=== PATIENT | male | born 1955 | race American Indian/Alaskan Native ===

== ENCOUNTER → 2016-10-09 | Outpatient (CLI) | payer MEDICARE, OTHER ==
[~2016-10-09] MED LIST: ALFU10TA PO; ALIR75PE SC; AMIO200T PO; AMIO200T42 PO; ASPI-496 PO; ASPI-650 PO; ATOR40TA78 PO; BROMOCRIPTINE PO; CELE200C PO; CETI10TA18 PO; CHOL20002 PO; CHOL20003 PO; COLE625T2 PO; CYAN10002 SQ; DIGO125T PO; DOXY100T PO; ERGO500047 PO; ERTA1VIA IV; EXEN2PEN SC; EZET10TA3 PO; FENO145T13 PO; FENO145T32 PO; FENOFIBRATE PO; FLUN25SP INH; FLUN25SP NAS; FLUT16SP NAS; FLUT1BLS INH; FLUT9.9S INH; FURO40TA6 PO; GLIM4TAB2 PO; GLIP5TAB10 PO; GUAI100L11 PO; HYDR-3138 PO; HYDR-3150 PO; HYDR-3240 PO; INSU100C5 SQ-INSULIN; INSU100I28 SQ-INSULIN; INSU100V13 SQ; INSU200I4 SC; IPRA15SP INH; IPRA15SP NAS; LEVO500T33 PO; LISI-167 PO; LISI5TAB7 PO; MAGN400T7 PO; MECL25TA4 PO; METF10002 PO; METH500T7 PO; METO-93 PO; METO25TA2 PO; METO25TA35 PO; METO25TA91 PO; METR250T4 PO; MUPIROCIN 2% TP; NPH,100V SQ; OMEG-14 PO; OXYC5TAB3 PO; POLY17PO5 PO; POTA10TA5 PO; PREG50CA PO; ROSU20TA PO; SODI30SP NAS; SODI45SP4 NAS; SPIR25TA3 PO; TAMS0.4C2 PO; TERB250T3 PO; TRIA10.8 INH; vitamin b-12 IM; will bring a list
== END | disposition home or self-care (01) ==
LOC: CFH 16:24
PROVIDERS: ATTEND Physical Medicine & Rehabilitation Sports Medicine
DX: M47.892 Other spondylosis, cervical region (principal); M48.02 Spinal stenosis, cervical region; M25.521 Pain in right elbow; M25.511 Pain in right shoulder
CPT/HCPCS: 72125

== ENCOUNTER 2017-02-08 19:49 | Inpatient (IN) | payer MEDICARE, OTHER ==
[~2017-02-08] VITALS: Ht 180.3 cm; Wt 124.4 kg
[~2017-02-08 19:49] MED LIST changes: +CHOL2000 PO; -CHOL20003 PO; +COLE625T12 PO; -COLE625T2 PO; +EZET10TA18 PO; -EZET10TA3 PO; -HYDR-3138 PO; +HYDR-3237 PO; -LEVO500T33 PO; +LEVO500T47 PO; +METR250T12 PO; -METR250T4 PO
[2017-02-08 21:09] LABS: HEMATOCRIT 37.7 % (39.2-51.8); HEMOGLOBIN 12.5 g/dL (13.7-18.0); WHITE BLOOD COUNT 9.8 x10^3/uL (3.4-10)
[2017-02-08 21:14] LABS: ASPARTATE AMINO TRANSFERASE 20 U/L (15-37); BLOOD UREA NITROGEN 27 mg/dL (7-18)
[2017-02-08 21:20] LABS: IS PT STATUS REG ER OR PRE ER? YES
[2017-02-08] MEDS ORDERED: FUROSEMIDE 40 MG/4 ML IV ONE (22:00)
[2017-02-08] MEDS ORDERED: FUROSEMIDE 40 MG/4 ML ONE (22:03)
[2017-02-08] MEDS ORDERED: P EP PO (22:24)
[2017-02-08] MEDS ORDERED: EXEN5PEN2 SQ (22:24)
[2017-02-08] MEDS ORDERED: EZET10TA18 PO (22:24)
[2017-02-08] MEDS ORDERED: BUDE0.5A INH (22:24)
[2017-02-08] MEDS ORDERED: SACU1TAB PO (22:24)
[2017-02-08] MEDS ORDERED: CHLO1TAB PO (22:24)
[2017-02-08] MEDS ORDERED: TEMPLATE NON-FORMULARY MED. (Alfuzosin Hcl** (Uroxatral**) 10 MG) HOMEMEDPO SCH (23:00)
[2017-02-08] MEDS ORDERED: DOCUSATE 100 MG CAPSULE PO PRN (23:00)
[2017-02-08] MEDS ORDERED: ONDANSETRON 2MG/ML, 2ML IVPush PRN (23:00)
[2017-02-08] MEDS ORDERED: POLYETHYLENE GLYCOL 17 GM PACKET PO PRN (23:00)
[2017-02-08] MEDS: BUDESONIDE 0.5 MG/2 ML INHA INH SCH (23:00)
[2017-02-08] MEDS ORDERED: ACETAMINOPHEN 325 MG TABLET PO PRN (23:00)
[2017-02-08] MEDS ORDERED: morphine SULFATE 10 MG/ML, 1ML IVPush PRN (23:00)
[2017-02-09] MEDS: COLESEVELAM 625 MG TABLET PO SCH ×4 (00:54→21:06)
[2017-02-09] MEDS: ATORVASTATIN 20 MG TABLET PO SCH ×2 (00:54→21:06)
[2017-02-09 00:59] VITALS: BP 110/76
[2017-02-09] MEDS: GLIMEPIRIDE 4 MG TABLET PO SCH ×3 (01:37→16:37)
[2017-02-09] MEDS: POTASSIUM CHLORIDE 20 MEQ TAB.ER.PRT PO SCH ×3 (01:37→21:06)
[2017-02-09] MEDS: PREGABALIN 25 MG CAPSULE PO SCH ×4 (01:38→21:07)
[2017-02-09] MEDS: MAGNESIUM OXIDE 400 MG TABLET PO SCH ×2 (01:38→21:06)
[2017-02-09] MEDS: SACUBITRIL/VALSARTAN 24MG-26MG TAB PO SCH ×3 (01:39→21:07)
[2017-02-09] MEDS: HYDROcodone/APAP 5/325 TABLET PO PRN ×4 (01:40→22:39)
[2017-02-09] MEDS ORDERED: IPRATROPIUM 0.5 MG/2.5 ML INHA NPPB PRN (02:00)
[2017-02-09 05:19] LABS: HEMATOCRIT 38.1 % (39.2-51.8); HEMOGLOBIN 12.8 g/dL (13.7-18.0); WHITE BLOOD COUNT 10.3 x10^3/uL (3.4-10)
[2017-02-09] MEDS: HEPARIN 5,000 UNITS/ML, 1ML SQ SCH ×3 (05:46→21:59)
[2017-02-09 05:53] LABS: IS PT STATUS REG ER OR PRE ER? NO
[2017-02-09 06:34] LABS: BLOOD UREA NITROGEN 28 mg/dL (7-18)
[2017-02-09] MEDS ORDERED: FUROSEMIDE 40 MG/4 ML IV SCH (07:30)
[2017-02-09 07:35] VITALS: BP 102/69
[2017-02-09] MEDS: FENOFIBRATE 145 MG TABLET PO SCH (07:44)
[2017-02-09] MEDS: CETIRIZINE 10 MG TABLET PO SCH (07:44)
[2017-02-09] MEDS: ASPIRIN 81 MG TABLET EC PO SCH (07:44)
[2017-02-09] MEDS: DIGOXIN 0.125 MG TABLET PO SCH (07:44)
[2017-02-09] MEDS: AMIODARONE 200 MG TABLET PO SCH (07:44)
[2017-02-09] MEDS: EZETIMIBE 10 MG TABLET PO SCH (07:45)
[2017-02-09] MEDS: SENNA/DOCUSATE TABLET PO SCH (07:45)
[2017-02-09] MEDS: SODIUM CHLORIDE FLUSH 10ML SYR IVF SCH ×2 (07:46→21:09)
[2017-02-09 08:53] VITALS: BP 119/75
[2017-02-09] MEDS: METOPROLOL SUCCINATE 25 MG TAB.ER.24H PO SCH (08:59)
[2017-02-09] MEDS: SPIRONOLACTONE 25 MG TABLET PO SCH (08:59)
[2017-02-09] MEDS ORDERED: BUDESONIDE 0.5 MG/2 ML INHA NPPB SCH (09:00)
[2017-02-09] MEDS: BUDESONIDE 0.5 MG/2 ML INHA INH SCH ×2 (10:07→20:42)
[2017-02-09 13:44] VITALS: BP 102/65
[2017-02-09 16:37] VITALS: BP 109/73
[2017-02-09] MEDS: FUROSEMIDE 40 MG/4 ML IV SCH (16:38)
[2017-02-09] MEDS: INSULIN ASPART 100 UNITS/ML, PEN SQ-INSULIN SCH ×2 (16:39→21:05)
[2017-02-09 20:49] VITALS: BP 124/84
[2017-02-09] MEDS: ALFUZOSIN HCL 10 MG HOMEMEDPO SCH (21:08)
[2017-02-09] MEDS: IPRATROPIUM 0.5 MG/2.5 ML INHA HHN PRN (23:14)
[2017-02-10 01:30] VITALS: BP 114/71
[2017-02-10 05:53] LABS: BLOOD UREA NITROGEN 29 mg/dL (7-18)
[2017-02-10] MEDS: HEPARIN 5,000 UNITS/ML, 1ML SQ SCH ×3 (05:58→20:24)
[2017-02-10] MEDS: HYDROcodone/APAP 5/325 TABLET PO PRN ×3 (05:58→17:22)
[2017-02-10] MEDS: SENNA/DOCUSATE TABLET PO SCH (07:27)
[2017-02-10] MEDS: COLESEVELAM 625 MG TABLET PO SCH ×3 (07:27→20:25)
[2017-02-10 07:36] VITALS: BP 108/72
[2017-02-10] MEDS: INSULIN ASPART 100 UNITS/ML, PEN SQ-INSULIN SCH ×4 (07:39→20:24)
[2017-02-10] MEDS: TRESIBA 30 UNIT SQ SCH (07:40)
[2017-02-10] MEDS: POTASSIUM CHLORIDE 20 MEQ TAB.ER.PRT PO SCH ×2 (07:43→20:25)
[2017-02-10] MEDS: DIGOXIN 0.125 MG TABLET PO SCH (07:43)
[2017-02-10] MEDS: FENOFIBRATE 145 MG TABLET PO SCH (07:43)
[2017-02-10] MEDS: FUROSEMIDE 40 MG/4 ML IV SCH ×2 (07:43→17:31)
[2017-02-10] MEDS: SPIRONOLACTONE 25 MG TABLET PO SCH (07:44)
[2017-02-10] MEDS: SACUBITRIL/VALSARTAN 24MG-26MG TAB PO SCH ×2 (07:44→20:25)
[2017-02-10] MEDS: GLIMEPIRIDE 4 MG TABLET PO SCH ×2 (07:45→17:23)
[2017-02-10] MEDS: CETIRIZINE 10 MG TABLET PO SCH (07:45)
[2017-02-10] MEDS: EZETIMIBE 10 MG TABLET PO SCH (07:45)
[2017-02-10] MEDS: ASPIRIN 81 MG TABLET EC PO SCH (07:45)
[2017-02-10] MEDS: PREGABALIN 25 MG CAPSULE PO SCH ×3 (07:45→20:27)
[2017-02-10] MEDS: METOPROLOL SUCCINATE 25 MG TAB.ER.24H PO SCH (07:46)
[2017-02-10] MEDS: AMIODARONE 200 MG TABLET PO SCH (07:46)
[2017-02-10] MEDS: SODIUM CHLORIDE FLUSH 10ML SYR IVF SCH ×2 (07:47→20:24)
[2017-02-10] MEDS: BUDESONIDE 0.5 MG/2 ML INHA INH SCH ×2 (09:00→19:50)
[2017-02-10 11:41] LABS: IS PT STATUS REG ER OR PRE ER? NO
[2017-02-10 14:50] VITALS: BP 100/67
[2017-02-10] MEDS: IPRATROPIUM 0.5 MG/2.5 ML INHA HHN PRN ×2 (14:53→19:50)
[2017-02-10] MEDS ORDERED: ONDANSETRON 2MG/ML, 2ML IVPush PRN (16:00)
[2017-02-10] MEDS ORDERED: DOCUSATE 100 MG CAPSULE PO PRN (16:00)
[2017-02-10] MEDS ORDERED: POLYETHYLENE GLYCOL 17 GM PACKET PO PRN (16:00)
[2017-02-10] MEDS ORDERED: morphine SULFATE 10 MG/ML, 1ML IVPush PRN (16:00)
[2017-02-10] MEDS ORDERED: IPRATROPIUM 0.5 MG/2.5 ML INHA NPPB PRN (16:00)
[2017-02-10] MEDS ORDERED: ACETAMINOPHEN 325 MG TABLET PO PRN (16:00)
[2017-02-10 16:04] LABS: IS PT STATUS REG ER OR PRE ER? NO
[2017-02-10 20:15] VITALS: BP 110/64
[2017-02-10] MEDS: ALFUZOSIN HCL 10 MG HOMEMEDPO SCH (20:25)
[2017-02-10] MEDS: ATORVASTATIN 20 MG TABLET PO SCH (20:25)
[2017-02-10] MEDS: MAGNESIUM OXIDE 400 MG TABLET PO SCH (20:26)
[2017-02-11] MEDS: HYDROcodone/APAP 5/325 TABLET PO PRN ×5 (00:21→23:17)
[2017-02-11 00:32] VITALS: BP 107/70
[2017-02-11] MEDS: IPRATROPIUM 0.5 MG/2.5 ML INHA HHN PRN ×2 (04:45→11:03)
[2017-02-11 05:03] LABS: HEMATOCRIT 39.1 % (39.2-51.8); HEMOGLOBIN 13.1 g/dL (13.7-18.0); WHITE BLOOD COUNT 7.7 x10^3/uL (3.4-10)
[2017-02-11 05:23] LABS: ASPARTATE AMINO TRANSFERASE 11 U/L (15-37); BLOOD UREA NITROGEN 32 mg/dL (7-18)
[2017-02-11 06:09] LABS: IS PT STATUS REG ER OR PRE ER? NO
[2017-02-11] MEDS: HEPARIN 5,000 UNITS/ML, 1ML SQ SCH ×3 (06:30→20:23)
[2017-02-11] MEDS: SENNA/DOCUSATE TABLET PO SCH (07:22)
[2017-02-11] MEDS: COLESEVELAM 625 MG TABLET PO SCH ×3 (07:22→20:46)
[2017-02-11 07:36] VITALS: BP 97/62
[2017-02-11] MEDS: FUROSEMIDE 40 MG/4 ML IV SCH ×2 (07:38→17:05)
[2017-02-11] MEDS: CETIRIZINE 10 MG TABLET PO SCH (07:38)
[2017-02-11] MEDS: ASPIRIN 81 MG TABLET EC PO SCH (07:39)
[2017-02-11] MEDS: SPIRONOLACTONE 25 MG TABLET PO SCH (07:39)
[2017-02-11] MEDS: PREGABALIN 25 MG CAPSULE PO SCH ×3 (07:39→20:22)
[2017-02-11] MEDS: DIGOXIN 0.125 MG TABLET PO SCH (07:39)
[2017-02-11] MEDS: EZETIMIBE 10 MG TABLET PO SCH (07:39)
[2017-02-11] MEDS: AMIODARONE 200 MG TABLET PO SCH (07:39)
[2017-02-11] MEDS: POTASSIUM CHLORIDE 20 MEQ TAB.ER.PRT PO SCH ×2 (07:39→20:21)
[2017-02-11] MEDS: FENOFIBRATE 145 MG TABLET PO SCH (07:39)
[2017-02-11] MEDS: SACUBITRIL/VALSARTAN 24MG-26MG TAB PO SCH ×2 (07:39→20:21)
[2017-02-11] MEDS: TRESIBA 30 UNIT SQ SCH (07:40)
[2017-02-11] MEDS: SODIUM CHLORIDE FLUSH 10ML SYR IVF SCH ×2 (07:40→20:20)
[2017-02-11] MEDS: GLIMEPIRIDE 4 MG TABLET PO SCH ×2 (07:40→17:04)
[2017-02-11] MEDS: INSULIN ASPART 100 UNITS/ML, PEN SQ-INSULIN SCH ×4 (07:40→20:22)
[2017-02-11 08:05] VITALS: BP 100/67
[2017-02-11] MEDS: BUDESONIDE 0.5 MG/2 ML INHA INH SCH ×2 (09:00→21:00)
[2017-02-11 11:34] VITALS: BP 108/64
[2017-02-11] MEDS: METOPROLOL SUCCINATE 25 MG TAB.ER.24H PO SCH (11:40)
[2017-02-11 15:20] VITALS: BP 106/67
[2017-02-11] MEDS: ALFUZOSIN HCL 10 MG HOMEMEDPO SCH (20:20)
[2017-02-11] MEDS: ATORVASTATIN 20 MG TABLET PO SCH (20:21)
[2017-02-11] MEDS: MAGNESIUM OXIDE 400 MG TABLET PO SCH (20:22)
[2017-02-11 20:27] VITALS: BP 99/65
[2017-02-12 01:21] VITALS: BP 95/62
[2017-02-12] MEDS: HEPARIN 5,000 UNITS/ML, 1ML SQ SCH ×3 (04:26→22:00)
[2017-02-12 06:04] LABS: BLOOD UREA NITROGEN 30 mg/dL (7-18)
[2017-02-12 08:01] VITALS: BP 102/69
[2017-02-12] MEDS: INSULIN ASPART 100 UNITS/ML, PEN SQ-INSULIN SCH ×4 (08:02→21:59)
[2017-02-12] MEDS: HYDROcodone/APAP 5/325 TABLET PO PRN ×3 (08:03→22:09)
[2017-02-12] MEDS: PREGABALIN 25 MG CAPSULE PO SCH ×3 (08:07→22:02)
[2017-02-12] MEDS: POTASSIUM CHLORIDE 20 MEQ TAB.ER.PRT PO SCH ×2 (08:07→22:02)
[2017-02-12] MEDS: ASPIRIN 81 MG TABLET EC PO SCH (08:09)
[2017-02-12] MEDS: EZETIMIBE 10 MG TABLET PO SCH (08:09)
[2017-02-12] MEDS: GLIMEPIRIDE 4 MG TABLET PO SCH ×2 (08:11→15:59)
[2017-02-12] MEDS: AMIODARONE 200 MG TABLET PO SCH (08:11)
[2017-02-12] MEDS: FUROSEMIDE 40 MG/4 ML IV SCH ×2 (08:11→16:02)
[2017-02-12] MEDS: CETIRIZINE 10 MG TABLET PO SCH (08:12)
[2017-02-12] MEDS: DIGOXIN 0.125 MG TABLET PO SCH (08:13)
[2017-02-12] MEDS: FENOFIBRATE 145 MG TABLET PO SCH (08:13)
[2017-02-12] MEDS: METOPROLOL SUCCINATE 25 MG TAB.ER.24H PO SCH (08:14)
[2017-02-12] MEDS: TRESIBA 30 UNIT SQ SCH (08:14)
[2017-02-12] MEDS: SPIRONOLACTONE 25 MG TABLET PO SCH (08:14)
[2017-02-12] MEDS: SODIUM CHLORIDE FLUSH 10ML SYR IVF SCH ×2 (08:14→22:01)
[2017-02-12] MEDS: SACUBITRIL/VALSARTAN 24MG-26MG TAB PO SCH ×2 (08:14→21:00)
[2017-02-12] MEDS: SENNA/DOCUSATE TABLET PO SCH (08:14)
[2017-02-12] MEDS: COLESEVELAM 625 MG TABLET PO SCH ×3 (08:19→22:09)
[2017-02-12 14:56] VITALS: BP 101/66
[2017-02-12] MEDS: IPRATROPIUM 0.5 MG/2.5 ML INHA HHN PRN (16:18)
[2017-02-12] MEDS ORDERED: IPRATROPIUM 0.5 MG/2.5 ML INHA NPPB PRN (16:30)
[2017-02-12 19:44] VITALS: BP_SYST 91; BP_SYST 93; BP_DIAS 60; BP_DIAS 63
[2017-02-12] MEDS: IPRATROPIUM 0.5 MG/2.5 ML INHA HHN SCH (19:58)
[2017-02-12] MEDS: MAGNESIUM OXIDE 400 MG TABLET PO SCH (22:02)
[2017-02-12] MEDS: ATORVASTATIN 20 MG TABLET PO SCH (22:02)
[2017-02-12 22:05] VITALS: BP 93/61
[2017-02-12] MEDS: ALFUZOSIN HCL 10 MG HOMEMEDPO SCH (22:08)
[2017-02-13 03:43] VITALS: BP 95/63
[2017-02-13] MEDS: HYDROcodone/APAP 5/325 TABLET PO PRN ×2 (04:08→10:50)
[2017-02-13] MEDS: IPRATROPIUM 0.5 MG/2.5 ML INHA HHN SCH (04:26)
[2017-02-13 05:49] LABS: HEMATOCRIT 42.1 % (39.2-51.8); WHITE BLOOD COUNT 8.6 x10^3/uL (3.4-10)
[2017-02-13] MEDS: HEPARIN 5,000 UNITS/ML, 1ML SQ SCH (05:53)
[2017-02-13 07:29] VITALS: BP 98/67
[2017-02-13] MEDS: INSULIN ASPART 100 UNITS/ML, PEN SQ-INSULIN SCH ×2 (09:11→11:42)
[2017-02-13 09:34] VITALS: BP 100/66
[2017-02-13] MEDS: FUROSEMIDE 40 MG/4 ML IV SCH (09:36)
[2017-02-13] MEDS: COLESEVELAM 625 MG TABLET PO SCH ×2 (09:36→09:37)
[2017-02-13] MEDS: SENNA/DOCUSATE TABLET PO SCH (09:37)
[2017-02-13] MEDS: FENOFIBRATE 145 MG TABLET PO SCH (09:37)
[2017-02-13] MEDS: EZETIMIBE 10 MG TABLET PO SCH (09:37)
[2017-02-13] MEDS: METOPROLOL SUCCINATE 25 MG TAB.ER.24H PO SCH (09:38)
[2017-02-13] MEDS: TRESIBA 30 UNIT SQ SCH (09:38)
[2017-02-13] MEDS: SACUBITRIL/VALSARTAN 24MG-26MG TAB PO SCH (09:38)
[2017-02-13] MEDS: CETIRIZINE 10 MG TABLET PO SCH (09:38)
[2017-02-13] MEDS: POTASSIUM CHLORIDE 20 MEQ TAB.ER.PRT PO SCH (09:40)
[2017-02-13] MEDS: SODIUM CHLORIDE FLUSH 10ML SYR IVF SCH (09:40)
[2017-02-13] MEDS: ASPIRIN 81 MG TABLET EC PO SCH (09:40)
[2017-02-13] MEDS: AMIODARONE 200 MG TABLET PO SCH (09:40)
[2017-02-13] MEDS: DIGOXIN 0.125 MG TABLET PO SCH (09:40)
[2017-02-13] MEDS: SPIRONOLACTONE 25 MG TABLET PO SCH (09:40)
[2017-02-13] MEDS: GLIMEPIRIDE 4 MG TABLET PO SCH (09:40)
[2017-02-13] MEDS: PREGABALIN 25 MG CAPSULE PO SCH (09:40)
== END 2017-02-13 17:56 | disposition home or self-care (01) | DRG 291 ==
LOC: ED 22:27 → SUATTDRO 22:32 → EDIP 22:45 → 5SO 02-09 00:31
PROVIDERS: ADMIT Family Medicine; ATTEND Family Medicine
DX: I13.0 Hypertensive heart and chronic kidney disease with heart failure and stage 1 through stage 4 chronic kidney disease, or unspecified chronic kidney disease (principal); I50.43 Acute on chronic combined systolic (congestive) and diastolic (congestive) heart failure; J96.10 Chronic respiratory failure, unspecified whether with hypoxia or hypercapnia; N17.9 Acute kidney failure, unspecified; I27.2 Other secondary pulmonary hypertension; D68.69 Other thrombophilia; E11.22 Type 2 diabetes mellitus with diabetic chronic kidney disease; E66.2 Morbid (severe) obesity with alveolar hypoventilation; Q21.1 Atrial septal defect; I42.9 Cardiomyopathy, unspecified; J44.9 Chronic obstructive pulmonary disease, unspecified; I48.2 Chronic atrial fibrillation; E66.01 Morbid (severe) obesity due to excess calories; E78.00 Pure hypercholesterolemia, unspecified; E78.5 Hyperlipidemia, unspecified; N18.9 Chronic kidney disease, unspecified; I25.10 Atherosclerotic heart disease of native coronary artery without angina pectoris; I34.0 Nonrheumatic mitral (valve) insufficiency; Z83.3 Family history of diabetes mellitus; Z99.81 Dependence on supplemental oxygen; Z68.39 Body mass index [BMI] 39.0-39.9, adult; Z95.0 Presence of cardiac pacemaker; Z82.49 Family history of ischemic heart disease and other diseases of the circulatory system; Z88.0 Allergy status to penicillin; Z88.2 Allergy status to sulfonamides; Z88.8 Allergy status to other drugs, medicaments and biological substances
CPT/HCPCS: 36415; 71010; 80048; 80053; 80162; 82962; 83735; 83880; 84484; 85025; 85610; 93005; 94640; 96374; C8929; J1644; J1815; J1940; J7626; J7644

== ENCOUNTER → 2017-03-14 | Outpatient (CLI) | payer MEDICARE, OTHER ==
[~2017-03-14] MED LIST changes: +BUDE0.5A INH; +CHLO1TAB PO; +EXEN5PEN2 SQ; +P EP PO; +SACU1TAB PO
== END | disposition home or self-care (01) ==
LOC: CVU 12:09
PROVIDERS: ATTEND Nurse Practitioner Family
DX: I08.1 Rheumatic disorders of both mitral and tricuspid valves (principal); I42.9 Cardiomyopathy, unspecified; I11.0 Hypertensive heart disease with heart failure; I50.9 Heart failure, unspecified; E11.9 Type 2 diabetes mellitus without complications; Q21.1 Atrial septal defect; Z95.0 Presence of cardiac pacemaker
CPT/HCPCS: 93306

== ENCOUNTER 2017-05-14 09:30 | Emergency (ER) | payer MEDICARE, OTHER ==
[~2017-05-14] VITALS: Ht 180.3 cm; Wt 125.0 kg
[2017-05-14] MEDS ORDERED: ONDANSETRON 2MG/ML, 2ML ONE (09:58)
[2017-05-14] MEDS ORDERED: HYDROmorphone 1 MG/ML, 1ML ONE ×2 (09:58→12:26)
[2017-05-14] MEDS ORDERED: HYDROmorphone 1 MG/ML, 1ML IVPush PRN (10:00)
[2017-05-14] MEDS ORDERED: SODIUM CHLORIDE FLUSH 10ML SYR IVF ONE (10:00)
[2017-05-14] MEDS ORDERED: ONDANSETRON 2MG/ML, 2ML IVPush ONE (10:00)
[2017-05-14] MEDS ORDERED: SODIUM CHLORIDE 0.9% 1,000ML IVBOLUS ONE (10:00)
[2017-05-14 10:15] LABS: PATH.CAST-FLAG NOT PRESENT; SPERM-FLAG NOT PRESENT; SRC-FLAG NOT PRESENT; XTAL-FLAG NOT PRESENT; YLC-FLAG NOT PRESENT
[2017-05-14 10:23] LABS: HEMATOCRIT 39.5 % (39.2-51.8); HEMOGLOBIN 13.2 g/dL (13.7-18.0); WHITE BLOOD COUNT 11.6 x10^3/uL (3.4-10)
[2017-05-14 10:34] LABS: ASPARTATE AMINO TRANSFERASE 16 U/L (15-37); BLOOD UREA NITROGEN 21 mg/dL (7-18)
[2017-05-14] MEDS ORDERED: CEFTRIAXONE PMX 1GM/50ML 50 ML ONE (11:05)
[2017-05-14] MEDS ORDERED: CEFTRIAXONE PMX 1GM/50ML 50 ML IV ONE (11:30)
[2017-05-14 11:57] VITALS: BP 98/59
== END 2017-05-14 12:23 | disposition home or self-care (01) ==
LOC: ED 10:36
DX: N45.1 Epididymitis (principal); E11.65 Type 2 diabetes mellitus with hyperglycemia; E78.00 Pure hypercholesterolemia, unspecified; I11.0 Hypertensive heart disease with heart failure; I50.9 Heart failure, unspecified; Z79.4 Long term (current) use of insulin; Z79.82 Long term (current) use of aspirin; Z88.0 Allergy status to penicillin
CPT/HCPCS: 36415; 76870; 80053; 81001; 85025; 87040; 87077; 87086; 96361; 96365; 96375; 99285; J0696; J1170; J2405; J7030; 87186

== ENCOUNTER 2017-06-04 11:48 | Emergency (ER) | payer MEDICARE, OTHER ==
[~2017-06-04] VITALS: Ht 180.3 cm; Wt 129.0 kg
[2017-06-04] MEDS ORDERED: SODIUM CHLORIDE FLUSH 10ML SYR IVF ONE (12:30)
[2017-06-04 13:05] LABS: HEMOGLOBIN 12.6 g/dL (13.7-18.0)
[2017-06-04 13:11] LABS: BLOOD UREA NITROGEN 29 mg/dL (7-18)
[2017-06-04 13:14] LABS: ASPARTATE AMINO TRANSFERASE 33 U/L (15-37)
[2017-06-04 13:16] LABS: IS PT STATUS REG ER OR PRE ER? YES
[2017-06-04 15:47] VITALS: BP 96/66
== END 2017-06-04 15:49 | disposition home or self-care (01) ==
LOC: ED 12:21
DX: I13.0 Hypertensive heart and chronic kidney disease with heart failure and stage 1 through stage 4 chronic kidney disease, or unspecified chronic kidney disease (principal); E11.22 Type 2 diabetes mellitus with diabetic chronic kidney disease; N18.9 Chronic kidney disease, unspecified; I50.9 Heart failure, unspecified; E78.00 Pure hypercholesterolemia, unspecified
CPT/HCPCS: 36415; 71010; 80053; 80162; 81003; 83735; 83880; 84439; 84443; 84484; 85025; 93005; 93308; 93321; 99285

== ENCOUNTER → 2017-07-10 | Outpatient (CLI) | payer MEDICARE ==
[~2017-07-10] MED LIST changes: +FURO20TA3 PO; +SULF-169 PO
== END | disposition home or self-care (01) ==
LOC: CFH 15:27
PROVIDERS: ATTEND Registered Nurse
DX: J18.9 Pneumonia, unspecified organism (principal)
CPT/HCPCS: 71046

== ENCOUNTER 2017-10-02 17:08 | Inpatient (IN) | payer MEDICARE, OTHER ==
[~2017-10-02] VITALS: Ht 180.3 cm; Wt 129.4 kg
[2017-10-02] MEDS ORDERED: FURO40TA6 PO (17:34)
[2017-10-02 18:39] LABS: BASOPHILS # (AUTO) 0.03 x10^3/uL (0-0.1); BASOPHILS % (AUTO) 1 % (0-1); EOSINOPHILS # (AUTO) 0.22 x10^3/uL (0-0.4); EOSINOPHILS % (AUTO) 4 % (1-7); LYMPHOCYTES # (AUTO) 2.07 x10^3/uL (1-3.4); LYMPHOCYTES % (AUTO) 34 % (22-44); MD NO; MEAN CORPUSCULAR HEMOGLOBIN 29.6 pg (27.5-34.5); MEAN CORPUSCULAR HGB CONC 33.3 g/dL (33.2-36.2); MEAN CORPUSCULAR VOLUME 88.8 fL (81-97); MEAN PLATELET VOLUME 8.2 fL (7.4-10.4); MONOCYTES # (AUTO) 0.48 x10^3/uL (0.2-0.8); MONOCYTES % (AUTO) 8 % (2-9); NEUTROPHILS # (AUTO) 3.23 x10^3/uL (1.8-6.8); NEUTROPHILS % (AUTO) 54 % (42-75); PLATELET COUNT 257 x10^3/uL (130-400); RED BLOOD COUNT 4.36 x10^6/uL (4.38-5.82); RED CELL DISTRIBUTION WIDTH 14.5 % (9.4-14.8)
[2017-10-02 18:49] LABS: INTERNATIONAL NORMALIZED RATIO 1.13 (0.93-1.1); PROTHROMBIN TIME 11.6 Seconds (9.6-11.5)
[2017-10-02 18:50] LABS: ALANINE AMINOTRANSFERASE 31 U/L (12-78); ALBUMIN 3.8 g/dL (3.4-5.0); ANION GAP 12 mmol/L (5-15); CALCIUM 8.6 mg/dL (8.5-10.1); CHLORIDE 105 mmol/L (98-107); CREATININE 2.21 mg/dL (0.7-1.3)
[2017-10-02 18:55] LABS: ALKALINE PHOSPHATASE 41 U/L (45-117); BILIRUBIN,TOTAL 0.5 mg/dL (0.2-1.0); TOTAL PROTEIN 7.9 g/dL (6.4-8.2)
[2017-10-02 19:01] LABS: TROPONIN I 0.207 ng/mL (0.000-0.045)
[2017-10-02] MEDS ORDERED: MORPHINE SULFATE 4 MG/ML, 1ML ONE (19:45)
[2017-10-02] MEDS ORDERED: ASPIRIN 81 MG TABLET CHEW ONE (19:46)
[2017-10-02] MEDS ORDERED: MORPHINE SULFATE 4 MG/ML, 1ML IVPush PRN (20:00)
[2017-10-02] MEDS ORDERED: ASPIRIN 81 MG TABLET CHEW PO ONE (20:00)
[2017-10-02] MEDS ORDERED: SODIUM CHLORIDE 0.9% 1,000 ML IV SCH (20:24)
[2017-10-02] MEDS ORDERED: ACETAMINOPHEN 325 MG TABLET PO PRN (20:30)
[2017-10-02] MEDS ORDERED: ONDANSETRON 2MG/ML, 2ML IVPush PRN (20:30)
[2017-10-02] MEDS ORDERED: DEXTROSE 50%, 50ML SYRINGE IVPush PRN (20:30)
[2017-10-02] MEDS ORDERED: DEXTROSE 4 GM TAB.CHEW PO PRN (20:30)
[2017-10-02] MEDS ORDERED: GLUCAGON 1 MG IM PRN (20:30)
[2017-10-02] MEDS: HYDROcodone/APAP 5/325 TABLET PO PRN (22:44)
[2017-10-02] MEDS: GLIMEPIRIDE 4 MG TABLET PO SCH (22:46)
[2017-10-02] MEDS: FUROSEMIDE 80 MG TABLET PO SCH (22:46)
[2017-10-02] MEDS: MAGNESIUM OXIDE 400 MG TABLET PO SCH (22:46)
[2017-10-02] MEDS: PREGABALIN 25 MG CAPSULE PO SCH (22:47)
[2017-10-02] MEDS: POTASSIUM CHLORIDE 20 MEQ TAB.ER.PRT PO SCH (22:47)
[2017-10-02] MEDS: SODIUM CHLORIDE FLUSH 10ML SYR IVF SCH (22:47)
[2017-10-02] MEDS: FLUTICASONE NASAL SPRAY 16GM NAS SCH (23:08)
[2017-10-02] MEDS: TEMPLATE NON-FORMULARY MED. (Alfuzosin Hcl** (Uroxatral**) 10 MG) HOMEMEDPO SCH (23:09)
[2017-10-02] MEDS: INSULIN LISPRO 100 UNITS/ML, PEN SQ-INSULIN SCH (23:09)
[2017-10-02 23:12] LABS: TROPONIN I 0.201 ng/mL (0.000-0.045)
[2017-10-02 23:29] VITALS: BP 94/61
[2017-10-03 01:44] VITALS: BP 101/66
[2017-10-03 05:58] LABS: BASOPHILS # (AUTO) 0.03 x10^3/uL (0-0.1); BASOPHILS % (AUTO) 1 % (0-1); EOSINOPHILS # (AUTO) 0.23 x10^3/uL (0-0.4); EOSINOPHILS % (AUTO) 4 % (1-7); LYMPHOCYTES # (AUTO) 2.37 x10^3/uL (1-3.4); LYMPHOCYTES % (AUTO) 40 % (22-44); MD NO; MEAN CORPUSCULAR HEMOGLOBIN 29.9 pg (27.5-34.5); MEAN CORPUSCULAR HGB CONC 33.9 g/dL (33.2-36.2); MEAN CORPUSCULAR VOLUME 88.1 fL (81-97); MEAN PLATELET VOLUME 8.2 fL (7.4-10.4); MONOCYTES # (AUTO) 0.53 x10^3/uL (0.2-0.8); MONOCYTES % (AUTO) 9 % (2-9); NEUTROPHILS # (AUTO) 2.83 x10^3/uL (1.8-6.8); NEUTROPHILS % (AUTO) 47 % (42-75); PLATELET COUNT 251 x10^3/uL (130-400); RED BLOOD COUNT 4.23 x10^6/uL (4.38-5.82); RED CELL DISTRIBUTION WIDTH 14.8 % (9.4-14.8)
[2017-10-03 06:11] LABS: ALANINE AMINOTRANSFERASE 30 U/L (12-78); ALBUMIN 3.6 g/dL (3.4-5.0); ANION GAP 9 mmol/L (5-15); CALCIUM 8.7 mg/dL (8.5-10.1); CHLORIDE 106 mmol/L (98-107); CREATININE 2.37 mg/dL (0.7-1.3); TROPONIN I 0.202 ng/mL (0.000-0.045)
[2017-10-03 06:25] LABS: ALKALINE PHOSPHATASE 34 U/L (45-117); BILIRUBIN,TOTAL 0.5 mg/dL (0.2-1.0); TOTAL PROTEIN 7.4 g/dL (6.4-8.2)
[2017-10-03] MEDS: INSULIN LISPRO 100 UNITS/ML, PEN SQ-INSULIN SCH ×4 (07:57→20:23)
[2017-10-03 08:15] VITALS: BP 92/62
[2017-10-03] MEDS: HYDROcodone/APAP 5/325 TABLET PO PRN ×3 (08:50→23:12)
[2017-10-03] MEDS: FENOFIBRATE 145 MG TABLET PO SCH (08:51)
[2017-10-03] MEDS: POTASSIUM CHLORIDE 20 MEQ TAB.ER.PRT PO SCH ×2 (08:52→20:21)
[2017-10-03] MEDS: PREGABALIN 25 MG CAPSULE PO SCH ×3 (08:52→20:21)
[2017-10-03] MEDS: AMIODARONE 200 MG TABLET PO SCH (08:52)
[2017-10-03] MEDS: ASPIRIN 81 MG TABLET EC PO SCH (08:52)
[2017-10-03] MEDS: CETIRIZINE 10 MG TABLET PO SCH (08:53)
[2017-10-03] MEDS: SPIRONOLACTONE 25 MG TABLET PO SCH (08:54)
[2017-10-03] MEDS: GLIMEPIRIDE 4 MG TABLET PO SCH ×2 (08:55→20:21)
[2017-10-03] MEDS: FUROSEMIDE 80 MG TABLET PO SCH ×2 (08:56→20:21)
[2017-10-03] MEDS ORDERED: ENOXAPARIN 30 MG/0.3 ML SQ SCH (09:00)
[2017-10-03] MEDS: TEMPLATE NON-FORMULARY MED. (Alfuzosin Hcl** (Uroxatral**) 10 MG) HOMEMEDPO SCH ×2 (09:00→20:26)
[2017-10-03] MEDS ORDERED: DIGOXIN 0.125 MG TABLET PO SCH (09:00)
[2017-10-03] MEDS: INSULIN DEGLUDEC 30 UNIT SC SCH (09:00)
[2017-10-03] MEDS: FLUTICASONE NASAL SPRAY 16GM NAS SCH ×2 (09:07→20:26)
[2017-10-03] MEDS: ENOXAPARIN 40 MG/0.4 ML SQ SCH (09:07)
[2017-10-03] MEDS: SODIUM CHLORIDE FLUSH 10ML SYR IVF SCH ×2 (09:09→20:26)
[2017-10-03] MEDS: EZETIMIBE 10 MG TABLET PO SCH (11:56)
[2017-10-03 14:00] VITALS: BP_SYST 100; BP_SYST 101; BP_DIAS 64; BP_DIAS 68
[2017-10-03 14:28] VITALS: BP 115/79
[2017-10-03] MEDS ORDERED: FUROSEMIDE 40 MG/4 ML IV ONE (17:30)
[2017-10-03 19:41] VITALS: BP 106/73
[2017-10-03] MEDS: MAGNESIUM OXIDE 400 MG TABLET PO SCH (20:21)
[2017-10-04] VITALS (7 sets, daily range): BP systolic 85–105; BP diastolic 64–75
[2017-10-04] MEDS: HYDROcodone/APAP 5/325 TABLET PO PRN ×4 (03:29→21:49)
[2017-10-04 05:25] LABS: BASOPHILS # (AUTO) 0.05 x10^3/uL (0-0.1); BASOPHILS % (AUTO) 1 % (0-1); EOSINOPHILS # (AUTO) 0.14 x10^3/uL (0-0.4); EOSINOPHILS % (AUTO) 2 % (1-7); LYMPHOCYTES # (AUTO) 3.28 x10^3/uL (1-3.4); LYMPHOCYTES % (AUTO) 39 % (22-44); MD NO; MEAN CORPUSCULAR HEMOGLOBIN 29.5 pg (27.5-34.5); MEAN CORPUSCULAR HGB CONC 33.3 g/dL (33.2-36.2); MEAN CORPUSCULAR VOLUME 88.6 fL (81-97); MEAN PLATELET VOLUME 8.4 fL (7.4-10.4); MONOCYTES # (AUTO) 0.64 x10^3/uL (0.2-0.8); MONOCYTES % (AUTO) 8 % (2-9); NEUTROPHILS # (AUTO) 4.22 x10^3/uL (1.8-6.8); NEUTROPHILS % (AUTO) 51 % (42-75); PLATELET COUNT 268 x10^3/uL (130-400); RED BLOOD COUNT 4.52 x10^6/uL (4.38-5.82); RED CELL DISTRIBUTION WIDTH 14.6 % (9.4-14.8)
[2017-10-04 05:28] LABS: CHLORIDE 105 mmol/L (98-107)
[2017-10-04 05:35] LABS: ALANINE AMINOTRANSFERASE 29 U/L (12-78); ALBUMIN 3.8 g/dL (3.4-5.0); ALKALINE PHOSPHATASE 31 U/L (45-117); ANION GAP 9 mmol/L (5-15); BILIRUBIN,TOTAL 0.8 mg/dL (0.2-1.0); CALCIUM 8.6 mg/dL (8.5-10.1); CREATININE 2.46 mg/dL (0.7-1.3)
[2017-10-04] MEDS: INSULIN LISPRO 100 UNITS/ML, PEN SQ-INSULIN SCH ×4 (07:00→21:47)
[2017-10-04] MEDS: ENOXAPARIN 40 MG/0.4 ML SQ SCH ×2 (08:46→09:02)
[2017-10-04] MEDS: ASPIRIN 81 MG TABLET EC PO SCH (08:47)
[2017-10-04] MEDS: FENOFIBRATE 145 MG TABLET PO SCH (08:47)
[2017-10-04] MEDS: FLUTICASONE NASAL SPRAY 16GM NAS SCH ×2 (08:47→21:41)
[2017-10-04] MEDS: SPIRONOLACTONE 25 MG TABLET PO SCH (08:48)
[2017-10-04] MEDS: PREGABALIN 25 MG CAPSULE PO SCH ×3 (08:48→21:41)
[2017-10-04] MEDS: CETIRIZINE 10 MG TABLET PO SCH (08:48)
[2017-10-04] MEDS: GLIMEPIRIDE 4 MG TABLET PO SCH ×2 (08:48→21:41)
[2017-10-04] MEDS: POTASSIUM CHLORIDE 20 MEQ TAB.ER.PRT PO SCH ×2 (08:48→21:41)
[2017-10-04] MEDS: AMIODARONE 200 MG TABLET PO SCH (08:51)
[2017-10-04] MEDS: TEMPLATE NON-FORMULARY MED. (Alfuzosin Hcl** (Uroxatral**) 10 MG) HOMEMEDPO SCH ×2 (08:52→21:46)
[2017-10-04] MEDS: FUROSEMIDE 40 MG TABLET PO SCH ×2 (08:52→21:41)
[2017-10-04] MEDS: INSULIN DEGLUDEC 30 UNIT SC SCH (08:53)
[2017-10-04] MEDS: SODIUM CHLORIDE FLUSH 10ML SYR IVF SCH ×2 (08:53→21:46)
[2017-10-04] MEDS: EZETIMIBE 10 MG TABLET PO SCH (08:53)
[2017-10-04] MEDS: CARVEDILOL 3.125 MG TABLET PO SCH ×2 (10:48→21:41)
[2017-10-04] MEDS: HEPARIN 5,000 UNITS/ML, 1ML SQ SCH ×2 (11:00→17:11)
[2017-10-04 12:16] LABS: HEMOGLOBIN A1C 8.2 % (4.2-6.3)
[2017-10-04] MEDS ORDERED: CARVEDILOL 3.125 MG TABLET PO SCH (18:00)
[2017-10-05] VITALS (7 sets, daily range): BP systolic 89–119; BP diastolic 62–87
[2017-10-05] MEDS: HYDROcodone/APAP 5/325 TABLET PO PRN ×3 (02:48→18:35)
[2017-10-05 05:12] LABS: ANION GAP 10 mmol/L (5-15); CALCIUM 8.7 mg/dL (8.5-10.1); CHLORIDE 106 mmol/L (98-107)
[2017-10-05 05:14] LABS: CREATININE 2.55 mg/dL (0.7-1.3)
[2017-10-05] MEDS: HEPARIN 5,000 UNITS/ML, 1ML SQ SCH ×3 (05:42→22:06)
[2017-10-05] MEDS: CARVEDILOL 3.125 MG TABLET PO SCH (05:43)
[2017-10-05] MEDS: INSULIN LISPRO 100 UNITS/ML, PEN SQ-INSULIN SCH ×4 (08:24→20:24)
[2017-10-05] MEDS: EZETIMIBE 10 MG TABLET PO SCH (08:24)
[2017-10-05] MEDS: SPIRONOLACTONE 25 MG TABLET PO SCH (08:24)
[2017-10-05] MEDS: ASPIRIN 81 MG TABLET EC PO SCH (08:24)
[2017-10-05] MEDS: FENOFIBRATE 145 MG TABLET PO SCH (08:24)
[2017-10-05] MEDS: INSULIN DEGLUDEC 30 UNIT SC SCH (08:25)
[2017-10-05] MEDS: FUROSEMIDE 40 MG TABLET PO SCH ×2 (08:25→20:25)
[2017-10-05] MEDS: PREGABALIN 25 MG CAPSULE PO SCH ×3 (08:25→20:24)
[2017-10-05] MEDS: GLIMEPIRIDE 4 MG TABLET PO SCH ×2 (08:25→20:25)
[2017-10-05] MEDS: POTASSIUM CHLORIDE 20 MEQ TAB.ER.PRT PO SCH ×2 (08:25→20:25)
[2017-10-05] MEDS: CETIRIZINE 10 MG TABLET PO SCH (08:25)
[2017-10-05] MEDS: AMIODARONE 200 MG TABLET PO SCH (08:25)
[2017-10-05] MEDS: SODIUM CHLORIDE FLUSH 10ML SYR IVF SCH ×2 (08:26→20:29)
[2017-10-05] MEDS: TEMPLATE NON-FORMULARY MED. (Alfuzosin Hcl** (Uroxatral**) 10 MG) HOMEMEDPO SCH ×2 (08:26→20:29)
[2017-10-05] MEDS: FLUTICASONE NASAL SPRAY 16GM NAS SCH ×2 (08:36→20:25)
[2017-10-05] MEDS ORDERED: CARVEDILOL 6.25 MG TABLET PO SCH (18:00)
[2017-10-06] VITALS (8 sets, daily range): BP systolic 92–117; BP diastolic 67–84
[2017-10-06] MEDS: HYDROcodone/APAP 5/325 TABLET PO PRN ×2 (01:00→05:29)
[2017-10-06] MEDS: ONDANSETRON ODT 4 MG PO PRN (04:15)
[2017-10-06] MEDS ORDERED: NITROGLYCERIN 0.4 MG BOTTLE (25 TABS) SL ONE (04:45)
[2017-10-06] MEDS: NITROGLYCERIN 0.4 MG BOTTLE (25 TABS) SL PRN ×3 (04:47→05:52)
[2017-10-06] MEDS ORDERED: NITROGLYCERIN 0.4 MG/SPRAY SL PRN (05:00)
[2017-10-06 05:02] LABS: TROPONIN I 0.223 ng/mL (0.000-0.045)
[2017-10-06] MEDS: HEPARIN 5,000 UNITS/ML, 1ML SQ SCH ×3 (05:29→21:32)
[2017-10-06] MEDS: FUROSEMIDE 40 MG TABLET PO SCH (06:06)
[2017-10-06] MEDS ORDERED: FUROSEMIDE 40 MG TABLET ONE (06:47)
[2017-10-06] MEDS ORDERED: FUROSEMIDE 40 MG TABLET PO ONE (07:00)
[2017-10-06] MEDS ORDERED: FUROSEMIDE 10 MG/ML ORAL SOL PO ONE (07:00)
[2017-10-06] MEDS: PREGABALIN 25 MG CAPSULE PO SCH ×3 (08:11→21:31)
[2017-10-06] MEDS: FLUTICASONE NASAL SPRAY 16GM NAS SCH ×2 (08:11→21:32)
[2017-10-06] MEDS: INSULIN LISPRO 100 UNITS/ML, PEN SQ-INSULIN SCH ×4 (08:11→21:34)
[2017-10-06] MEDS: SODIUM CHLORIDE FLUSH 10ML SYR IVF SCH ×2 (08:12→21:32)
[2017-10-06] MEDS: EZETIMIBE 10 MG TABLET PO SCH (08:12)
[2017-10-06] MEDS: TEMPLATE NON-FORMULARY MED. (Alfuzosin Hcl** (Uroxatral**) 10 MG) HOMEMEDPO SCH ×2 (08:12→21:34)
[2017-10-06] MEDS: FENOFIBRATE 145 MG TABLET PO SCH (08:12)
[2017-10-06] MEDS: INSULIN DEGLUDEC 30 UNIT SC SCH (08:12)
[2017-10-06] MEDS: AMIODARONE 200 MG TABLET PO SCH (08:12)
[2017-10-06] MEDS: ASPIRIN 81 MG TABLET EC PO SCH (08:12)
[2017-10-06] MEDS: CETIRIZINE 10 MG TABLET PO SCH (08:12)
[2017-10-06] MEDS: SPIRONOLACTONE 25 MG TABLET PO SCH (08:12)
[2017-10-06] MEDS: POTASSIUM CHLORIDE 20 MEQ TAB.ER.PRT PO SCH (08:12)
[2017-10-06] MEDS: GLIMEPIRIDE 4 MG TABLET PO SCH ×2 (08:12→21:32)
[2017-10-06 08:15] LABS: ANION GAP 15 mmol/L (5-15); CALCIUM 9.1 mg/dL (8.5-10.1); CHLORIDE 103 mmol/L (98-107); CREATININE 3.18 mg/dL (0.7-1.3)
[2017-10-06 11:37] LABS: TROPONIN I 0.209 ng/mL (0.000-0.045)
[2017-10-06] MEDS: ISOSORBIDE DINITRATE 10 MG TABLET PO SCH ×2 (15:29→21:31)
[2017-10-06] MEDS: CARVEDILOL 6.25 MG TABLET PO SCH (18:17)
[2017-10-06] MEDS: FUROSEMIDE 80 MG TABLET PO SCH (18:17)
[2017-10-07 02:19] VITALS: BP 94/68
[2017-10-07] MEDS: HEPARIN 5,000 UNITS/ML, 1ML SQ SCH ×3 (05:57→21:10)
[2017-10-07 06:00] LABS: ANION GAP 12 mmol/L (5-15); CALCIUM 8.8 mg/dL (8.5-10.1); CHLORIDE 102 mmol/L (98-107); CREATININE 3.88 mg/dL (0.7-1.3)
[2017-10-07] MEDS: INSULIN LISPRO 100 UNITS/ML, PEN SQ-INSULIN SCH ×4 (07:14→21:16)
[2017-10-07] MEDS: PREGABALIN 25 MG CAPSULE PO SCH ×3 (07:16→21:09)
[2017-10-07] MEDS: ASPIRIN 81 MG TABLET EC PO SCH (07:16)
[2017-10-07] MEDS: CETIRIZINE 10 MG TABLET PO SCH (07:16)
[2017-10-07] MEDS: FLUTICASONE NASAL SPRAY 16GM NAS SCH ×2 (07:16→21:06)
[2017-10-07] MEDS: AMIODARONE 200 MG TABLET PO SCH (07:16)
[2017-10-07] MEDS: FENOFIBRATE 145 MG TABLET PO SCH (07:16)
[2017-10-07] MEDS: GLIMEPIRIDE 4 MG TABLET PO SCH ×2 (07:16→21:06)
[2017-10-07] MEDS: EZETIMIBE 10 MG TABLET PO SCH (07:16)
[2017-10-07] MEDS: FUROSEMIDE 80 MG TABLET PO SCH ×2 (07:17→18:19)
[2017-10-07] MEDS: TEMPLATE NON-FORMULARY MED. (Alfuzosin Hcl** (Uroxatral**) 10 MG) HOMEMEDPO SCH ×2 (07:19→21:00)
[2017-10-07] MEDS: INSULIN DEGLUDEC 30 UNIT SC SCH (07:20)
[2017-10-07] MEDS: SPIRONOLACTONE 25 MG TABLET PO SCH (07:24)
[2017-10-07 07:34] VITALS: BP 92/72
[2017-10-07] MEDS: CARVEDILOL 6.25 MG TABLET PO SCH ×2 (08:51→18:17)
[2017-10-07] MEDS ORDERED: POTASSIUM CHLORIDE 20 MEQ TAB.ER.PRT PO SCH (09:00)
[2017-10-07] MEDS: SODIUM CHLORIDE FLUSH 10ML SYR IVF SCH ×2 (10:00→21:06)
[2017-10-07] MEDS: ISOSORBIDE DINITRATE 10 MG TABLET PO SCH ×3 (10:00→21:08)
[2017-10-07 14:09] VITALS: BP 89/65
[2017-10-07 19:02] VITALS: BP 94/68
[2017-10-07] MEDS: ONDANSETRON ODT 4 MG PO PRN (21:11)
[2017-10-08 01:33] VITALS: BP 100/71
[2017-10-08] MEDS: CARVEDILOL 6.25 MG TABLET PO SCH ×2 (06:00→18:00)
[2017-10-08] MEDS: HEPARIN 5,000 UNITS/ML, 1ML SQ SCH ×3 (06:11→21:23)
[2017-10-08] MEDS: INSULIN LISPRO 100 UNITS/ML, PEN SQ-INSULIN SCH ×4 (07:00→21:25)
[2017-10-08 07:40] VITALS: BP 107/70
[2017-10-08] MEDS: INSULIN DEGLUDEC 30 UNIT SC SCH (08:36)
[2017-10-08 08:56] LABS: ANION GAP 9 mmol/L (5-15); CALCIUM 8.4 mg/dL (8.5-10.1); CHLORIDE 99 mmol/L (98-107)
[2017-10-08] MEDS: FLUTICASONE NASAL SPRAY 16GM NAS SCH ×2 (09:42→21:23)
[2017-10-08] MEDS: EZETIMIBE 10 MG TABLET PO SCH (09:42)
[2017-10-08] MEDS: AMIODARONE 200 MG TABLET PO SCH (09:42)
[2017-10-08] MEDS: FENOFIBRATE 145 MG TABLET PO SCH (09:42)
[2017-10-08] MEDS: PREGABALIN 25 MG CAPSULE PO SCH ×3 (09:42→21:26)
[2017-10-08] MEDS: CETIRIZINE 10 MG TABLET PO SCH (09:42)
[2017-10-08] MEDS: ASPIRIN 81 MG TABLET EC PO SCH (09:42)
[2017-10-08] MEDS: TEMPLATE NON-FORMULARY MED. (Alfuzosin Hcl** (Uroxatral**) 10 MG) HOMEMEDPO SCH ×2 (09:43→21:23)
[2017-10-08] MEDS: SODIUM CHLORIDE FLUSH 10ML SYR IVF SCH ×2 (09:43→21:26)
[2017-10-08] MEDS: ISOSORBIDE DINITRATE 10 MG TABLET PO SCH ×3 (09:44→21:26)
[2017-10-08] MEDS: GLIMEPIRIDE 4 MG TABLET PO SCH ×2 (09:51→21:25)
[2017-10-08] MEDS: FUROSEMIDE 80 MG TABLET PO SCH ×2 (09:51→17:17)
[2017-10-08] MEDS ORDERED: POTASSIUM CHLORIDE 20 MEQ TAB.ER.PRT PO ONE (10:30)
[2017-10-08] MEDS ORDERED: METOLAZONE 2.5 MG TABLET PO ONE (10:30)
[2017-10-08 11:45] VITALS: BP 105/71
[2017-10-08] MEDS: SPIRONOLACTONE 25 MG TABLET PO SCH (11:47)
[2017-10-08 14:56] VITALS: BP 108/70
[2017-10-08] MEDS: POLYETHYLENE GLYCOL 17 GM PACKET PO PRN (18:18)
[2017-10-08 20:28] VITALS: BP 106/68
[2017-10-09 01:30] VITALS: BP 112/69
[2017-10-09] MEDS: CARVEDILOL 6.25 MG TABLET PO SCH (06:00)
[2017-10-09] MEDS: HEPARIN 5,000 UNITS/ML, 1ML SQ SCH ×3 (06:35→21:40)
[2017-10-09] MEDS: INSULIN LISPRO 100 UNITS/ML, PEN SQ-INSULIN SCH ×4 (07:00→21:40)
[2017-10-09 07:20] VITALS: BP 99/61
[2017-10-09 08:29] LABS: ANION GAP 10 mmol/L (5-15); CALCIUM 8.8 mg/dL (8.5-10.1); CHLORIDE 100 mmol/L (98-107)
[2017-10-09] MEDS ORDERED: POTASSIUM CHLORIDE 20 MEQ TAB.ER.PRT ONE (08:48)
[2017-10-09] MEDS: POTASSIUM CHLORIDE 20 MEQ TAB.ER.PRT PO SCH ×2 (08:51→17:18)
[2017-10-09] MEDS: SPIRONOLACTONE 25 MG TABLET PO SCH (08:52)
[2017-10-09] MEDS: EZETIMIBE 10 MG TABLET PO SCH (08:52)
[2017-10-09] MEDS: CETIRIZINE 10 MG TABLET PO SCH (08:52)
[2017-10-09] MEDS: FUROSEMIDE 80 MG TABLET PO SCH ×2 (08:52→17:18)
[2017-10-09] MEDS: ASPIRIN 81 MG TABLET EC PO SCH (08:52)
[2017-10-09] MEDS: AMIODARONE 200 MG TABLET PO SCH (08:53)
[2017-10-09] MEDS: FENOFIBRATE 145 MG TABLET PO SCH (08:53)
[2017-10-09] MEDS: FLUTICASONE NASAL SPRAY 16GM NAS SCH ×2 (08:53→21:37)
[2017-10-09] MEDS: TEMPLATE NON-FORMULARY MED. (Alfuzosin Hcl** (Uroxatral**) 10 MG) HOMEMEDPO SCH ×2 (08:53→21:37)
[2017-10-09] MEDS: SODIUM CHLORIDE FLUSH 10ML SYR IVF SCH ×2 (08:53→21:41)
[2017-10-09] MEDS ORDERED: POTASSIUM CHLORIDE 40 MEQ in SODIUM CHLORIDE 0.9% 500 ML IV ONE (09:00)
[2017-10-09 10:01] VITALS: BP 105/73
[2017-10-09] MEDS: PREGABALIN 25 MG CAPSULE PO SCH ×3 (10:07→21:39)
[2017-10-09] MEDS: GLIMEPIRIDE 4 MG TABLET PO SCH ×2 (10:08→21:39)
[2017-10-09] MEDS: ISOSORBIDE DINITRATE 10 MG TABLET PO SCH ×3 (10:08→21:39)
[2017-10-09] MEDS: INSULIN DEGLUDEC 30 UNIT SC SCH (10:09)
[2017-10-09] MEDS ORDERED: POTASSIUM CHLORIDE 20 MEQ TAB.ER.PRT PO ONE (12:00)
[2017-10-09 13:15] VITALS: BP 113/77
[2017-10-09] MEDS: POLYETHYLENE GLYCOL 17 GM PACKET PO PRN (14:26)
[2017-10-09 21:02] VITALS: BP 109/74
[2017-10-09] MEDS: HYDROcodone/APAP 5/325 TABLET PO PRN (21:38)
[2017-10-10 02:41] VITALS: BP 105/72
[2017-10-10] MEDS: HEPARIN 5,000 UNITS/ML, 1ML SQ SCH (06:13)
[2017-10-10] MEDS: INSULIN LISPRO 100 UNITS/ML, PEN SQ-INSULIN SCH ×2 (07:00→11:00)
[2017-10-10 07:19] VITALS: BP 101/68
[2017-10-10 08:22] LABS: ANION GAP 7 mmol/L (5-15); CALCIUM 9.1 mg/dL (8.5-10.1); CHLORIDE 98 mmol/L (98-107); CREATININE 2.76 mg/dL (0.7-1.3)
[2017-10-10] MEDS: FUROSEMIDE 80 MG TABLET PO SCH (08:36)
[2017-10-10] MEDS: SODIUM CHLORIDE FLUSH 10ML SYR IVF SCH (08:37)
[2017-10-10] MEDS: POTASSIUM CHLORIDE 20 MEQ TAB.ER.PRT PO SCH (08:37)
[2017-10-10] MEDS: SPIRONOLACTONE 25 MG TABLET PO SCH (08:38)
[2017-10-10] MEDS: FLUTICASONE NASAL SPRAY 16GM NAS SCH (08:38)
[2017-10-10] MEDS: GLIMEPIRIDE 4 MG TABLET PO SCH (08:38)
[2017-10-10] MEDS: ASPIRIN 81 MG TABLET EC PO SCH (08:39)
[2017-10-10] MEDS: PREGABALIN 25 MG CAPSULE PO SCH (08:39)
[2017-10-10] MEDS: AMIODARONE 200 MG TABLET PO SCH (08:39)
[2017-10-10] MEDS: FENOFIBRATE 145 MG TABLET PO SCH (08:40)
[2017-10-10] MEDS: EZETIMIBE 10 MG TABLET PO SCH (08:40)
[2017-10-10] MEDS: CETIRIZINE 10 MG TABLET PO SCH (08:40)
[2017-10-10] MEDS: ISOSORBIDE DINITRATE 10 MG TABLET PO SCH (08:58)
[2017-10-10] MEDS: TEMPLATE NON-FORMULARY MED. (Alfuzosin Hcl** (Uroxatral**) 10 MG) HOMEMEDPO SCH (09:00)
[2017-10-10] MEDS: INSULIN DEGLUDEC 30 UNIT SC SCH (09:00)
[2017-10-10] MEDS ORDERED: ISOS10TA2 PO (10:22)
[2017-10-10] MEDS ORDERED: POTA10TA5 PO (10:22)
[2017-10-10] MEDS ORDERED: HYDR-3341 PO (10:22)
== END 2017-10-10 12:34 | disposition home or self-care (01) | DRG 682 ==
LOC: SUATTDRO 20:17 → ED 21:10 → EDIP 21:27 → 5SO 22:22 → DCLOUNGE 10-10 12:25
PROVIDERS: ADMIT Hospitalist; ATTEND Hospitalist
DX: N17.9 Acute kidney failure, unspecified (principal); J96.21 Acute and chronic respiratory failure with hypoxia; I50.43 Acute on chronic combined systolic (congestive) and diastolic (congestive) heart failure; E11.22 Type 2 diabetes mellitus with diabetic chronic kidney disease; I27.20 Pulmonary hypertension, unspecified; E87.2 Acidosis; I95.9 Hypotension, unspecified; E66.01 Morbid (severe) obesity due to excess calories; E11.42 Type 2 diabetes mellitus with diabetic polyneuropathy; I13.0 Hypertensive heart and chronic kidney disease with heart failure and stage 1 through stage 4 chronic kidney disease, or unspecified chronic kidney disease; I42.9 Cardiomyopathy, unspecified; E87.1 Hypo-osmolality and hyponatremia; N18.4 Chronic kidney disease, stage 4 (severe); E78.5 Hyperlipidemia, unspecified; E87.5 Hyperkalemia; G47.33 Obstructive sleep apnea (adult) (pediatric); I34.0 Nonrheumatic mitral (valve) insufficiency; I50.82 Biventricular heart failure; K59.00 Constipation, unspecified; Z68.39 Body mass index [BMI] 39.0-39.9, adult; Z91.19 Patient's noncompliance with other medical treatment and regimen; Z95.810 Presence of automatic (implantable) cardiac defibrillator; Z99.81 Dependence on supplemental oxygen; Z79.4 Long term (current) use of insulin; Z79.82 Long term (current) use of aspirin; Z87.891 Personal history of nicotine dependence; Z82.49 Family history of ischemic heart disease and other diseases of the circulatory system; Z83.3 Family history of diabetes mellitus
CPT/HCPCS: 36415; 71045; 80048; 80053; 80162; 82962; 83036; 83690; 83735; 83880; 84100; 84484; 85025; 85610; 85730; 93005; 99285; C8929; J1644; J1650; J1940; Q0162; J1815; J7030